=== PATIENT | male | born 1945 | race Caucasian/White ===

== ENCOUNTER 2017-01-10 07:25 | Inpatient (IN) | payer OTHER, BC ==
[2017-01-10] VITALS (7 sets, daily range): BP systolic 109–152; BP diastolic 72–95; PULSE 83–97; TEMP 36.3–36.7; O2SAT 95–96; Ht 172.7 cm; Wt 75.1 kg
[~2017-01-10] VITALS: Ht 172.7 cm; Wt 75.1 kg
[~2017-01-10 07:25] MED LIST: NIFE30TA83 PO
[2017-01-10] MEDS ORDERED: SODIUM CHLORIDE 0.9% 1000ML 1,000 ML IV SCH (07:34)
[2017-01-10 07:58] LABS: BASO % 0.2 %; BASO ABS # 0.02 K/uL (0-0.2); COMPLETE YES; EOS % 5.7 %; HEMATOCRIT 48.2 % (42-52); IG% 0.2 %; LYMPH % 26.7 %; LYMPH ABS # 2.17 K/uL (1.2-3.4); MEAN CELL VOLUME 90.8 fL (80-100); MEAN CORPUSCULAR HEMOGLOBIN 30.9 pg (25-34); MEAN PLATELET VOLUME 11.1 fL (7.4-10.4); MONO % 6.9 %; NEUT % 60.3 %; PLATELET COUNT 210 K/uL (130-400); RED BLOOD COUNT 5.31 M/uL (4.7-6.1); WHITE BLOOD COUNT 8.12 K/uL (4.8-10.8)
--- NOTE | 2017-01-10 07:59 | EMERGENCY ROOM VISIT NOTE ---
History Report prepared by Diallo: Gi Saab Under the Supervision of: Dr. Sarah Linn M.D. First contact with patient: 07:34 Chief Complaint: NEURO SYMPTOMS Stated Complaint: RIGHT ARM WON'T WORK,MANAGER HEALTH,LOOSE History of Present Illness The patient is a 71 year old male who presents to the Emergency Room with complaints of constant neurological symptoms beginning 1 hour ago. The patient' s states that the patient woke up this morning and took a shower. She reports that she heard him drop the soap several times in the shower and when he got out of the shower he told her that his arm was feeling weak and was not working properly. She notes that his right leg seems more wobbly and weak than usual. She denies any confusion, slurred speech, recent surgeries, history of diabetes, history of heart issues, stroke history, and taking blood thinners. The reports that the patient thinks that his symptoms did not start until after her woke up and got out of bed. She notes that his arm weakness seems to be slightly improved. Source of History: patient, spouse/significant other Onset: 1 hour ago Position: other (neurologic) Quality: other (weakness) Timing: constant Note: Pt has right arm weakness and right leg weakness. Denies any slurred speech and confusion. Review of Systems See HPI for pertinent positives & negatives. A total of 10 systems reviewed and were otherwise negative. Past Medical & Surgical Medical Problems: (1) Achalasia of esophagus (2) Basal cell carcinoma (3) Esophageal dilatation (4) TIA (transient ischemic attack) Surgical Problems: (1) H/O arthroscopic knee surgery (2) H/O rotator cuff surgery (3) History of cataract surgery Family History No pertinent family history stated. Social History Smoking Status: Never Smoker Marital Status: Housing Status: lives with significant other Occupation Status: retired Current/Historical Medications Scheduled Aspirin (Aspirin EC Low Dose), 81 MG PO DAILY Nifedipine Ext Rel (Procardia Xl Ext Rel), 30 MG PO QAM Allergies Coded Allergies: No Known Allergies (Unverified , 01/10/17) Physical Exam Vital Signs Date Time Temp Pulse Resp B/P Pulse Ox O2 Delivery O2 Flow Rate FiO2 01/10/17 08:30 94 16 150/90 01/10/17 07:39 36.5 100 16 171/117 95 Room Air 01/10/17 07:37 107 01/10/17 07:36 95 Room Air Physical Exam Vital signs reviewed. General: Well-appearing, in no significant distress. HEENT: No scleral icterus, PERRLA, neck supple. Atraumatic. Cardiovascular: Regular rate and rhythm, no extra sounds. Pulmonary: Clear to auscultation bilaterally, normal work of breathing. Abdomen: Soft, nontender, nondistended, positive bowel sounds. Musculoskeletal: Atraumatic, no peripheral edema. Neurologic: Patient awake alert and oriented x 3, full strength in all 4 extremities. Cranial nerves 2 through 12 grossly intact. No pronator drift, normal finger to nose, speech is clear. Skin: Warm, dry, no rash Medical Decision & Procedures ER Provider Diagnostic Interpretation: Radiology results as stated below per my review and radiologist interpretation: HEAD CT NONCONTRAST Findings: Mild mucosal thickening within the left frontal sinus and partial opacification of the ethmoid air cells. There appear to be small nasal polyps with the largest on the left measuring 2 cm. Mild mucosal thickening within the left maxillary sinus. The mastoid air cells are clear. The calvarium and skull base are intact. The ventricles and sulci are within normal limits. There is no mass, hematoma, midline shift, or acute infarct. Impression: No acute intracranial abnormality. A few nasal polyps measuring up to 2 cm. Electronically signed by: Aden Calzada M.D. 01/10/2017 8:13 AM Dictated Date/Time: 01/10/2017 8:08 AM CHEST ONE VIEW PORTABLE FINDINGS: The cardiac and mediastinal contours are normal. There is no evidence of focal pulmonary consolidation. There is no evidence of failure. No pleural effusions are visualized.[ IMPRESSION: No active disease in the chest. Electronically signed by: Tanner Domínguez M.D. 01/10/2017 9:06 AM Dictated Date/Time: 01/10/2017 9:06 AM Laboratory Results 01/10/17 07:40 Red Blood Count 5.31, Mean Corpuscular Volume 90.8, Mean Corpuscular Hemoglobin 30.9, Mean Corpuscular Hemoglobin Concent 34.0, Mean Platelet Volume 11.1, Neutrophils (%) (Auto) 60.3, Lymphocytes (%) (Auto) 26.7, Monocytes (%) (Auto) 6.9, Eosinophils (%) (Auto) 5.7, Basophils (%) (Auto) 0.2, Neutrophils # (Auto) 4.89, Lymphocytes # (Auto) 2.17, Monocytes # (Auto) 0.56, Eosinophils # (Auto) 0.46, Basophils # (Auto) 0.02 01/10/17 07:40 Test 01/10/17 07:34 01/10/17 07:40 01/10/17 07:44 White Blood Count 8.12 K/uL (4.8-10.8) Red Blood Count 5.31 M/uL (4.7-6.1) Hemoglobin 16.4 g/dL (14.0-18.0) Hematocrit 48.2 % (42-52) Mean Corpuscular Volume 90.8 fL (80-100) Mean Corpuscular Hemoglobin 30.9 pg (25-34) Mean Corpuscular Hemoglobin Concent 34.0 g/dl (32-36) Platelet Count 210 K/uL (130-400) Mean Platelet Volume 11.1 fL (7.4-10.4) Neutrophils (%) (Auto) 60.3 % Lymphocytes (%) (Auto) 26.7 % Monocytes (%) (Auto) 6.9 % Eosinophils (%) (Auto) 5.7 % Basophils (%) (Auto) 0.2 % Neutrophils # (Auto) 4.89 K/uL (1.4-6.5) Lymphocytes # (Auto) 2.17 K/uL (1.2-3.4) Monocytes # (Auto) 0.56 K/uL (0.11-0.59) Eosinophils # (Auto) 0.46 K/uL (0-0.5) Basophils # (Auto) 0.02 K/uL (0-0.2) RDW Standard Deviation 44.2 fL (36.4-46.3) RDW Coefficient of Variation 13.4 % (11.5-14.5) Immature Granulocyte % (Auto) 0.2 % Immature Granulocyte # (Auto) 0.02 K/uL (0.00-0.02) Prothrombin Time 10.7 SECONDS (9.0-12.0) Prothromb Time International Ratio 1.0 (0.9-1.1) Activated Partial Thromboplast Time 29.1 SECONDS (21.0-31.0) Partial Thromboplastin Ratio 1.1 Anion Gap 9.0 mmol/L (3-11) Est Creatinine Clear Calc Drug Dose 58.7 ml/min Estimated GFR () 77.3 Estimated GFR (Non- 66.7 BUN/Creatinine Ratio 10.5 (10-20) Estimated Average Glucose 103 mg/dl Hemoglobin A1c 5.2 % (4.5-5.6) Calcium Level 8.7 mg/dl (8.5-10.1) Total Creatine Kinase 59 U/L (39-308) Creatine Kinase MB 1.3 ng/ml (0.5-3.6) Creatine Kinase MB Ratio 2.2 (0-3.0) Troponin I < 0.015 ng/ml (0-0.045) Triglycerides Level 180 mg/dl (0-150) Cholesterol Level 223 mg/dl (0-200) HDL Cholesterol 47 mg/dl LDL Cholesterol, Calculated 140 mg/dl VLDL Cholesterol, Calculated 36 mg/dl Cholesterol/HDL Ratio 4.7 Bedside Prothrombin Time INR 1.1 (0.9-1.1) Bedside Glucose 108 mg/dl (70-99) Laboratory results per my review. Medications Administered Medications (Trade) Dose Ordered Sig/Hansel Route Start Time Stop Time Status Last Admin Dose Admin Sodium Chloride (Nss 1000ml) 1,000 ml @ 50 mls/hr Q20H IV 01/10/17 07:34 01/10/17 11:33 DC 01/10/17 08:08 50 MLS/HR ECG Indication: weakness Rate (beats per minute): 94 Rhythm: sinus rhythm Findings: 1st degree AV block, no acute ischemic change, no ectopy ED Course 0742: Past medical records reviewed. The patient was evaluated in room A3. A complete history and physical examination was performed. 0734: Sodium Chloride 1000 ml @ 50 mls/hr IV. 1011: I reviewed the patient's case with Dr. Vázquez of [facility]. Dr. Vázquez will evaluate the patient for further management. 1019: Upon reevaluation, the patient is resting comfortably. I discussed laboratory and radiographic results with the patient. He verbalized agreement of the treatment plan. [facility] The patient will be evaluated for further management and care. Medical Decision Differential diagnosis: Etiologies such as metabolic, infection, hypo/hyperglycemia, electrolyte abnormalities, cardiac sources, intracerebral event, toxicologic, neurologic, as well as others were entertained. Medication Reconciliation: I attest that I have personally reviewed the patient' s current medication list. This patient was evaluated and appeared to be in no significant distress. The patient's neurologic symptoms seem to have resolved by the time I evaluated the patient. His head CT was performed and is clear. Laboratory work is fairly unrevealing. EKG reveals a sinus rhythm with a first-degree AV block. I do suspect the patient has had a TIA. Given his age, it is in the patient's best interest to stay in the hospital for further management. Dr. Vázquez of the hospitalist service was consulted and will evaluate the patient. Patient is aware of the plan and agrees. Consults Time Called: 2004 Consulting Physician: Dr. Gurpreet Tijerina Returned Call: 1011 I reviewed the patient's case with Dr. Vázquez of [facility]. Dr. Vázquez will evaluate the patient for further management. Impression Primary Impression: TIA (transient ischemic attack) Scribe Attestation The scribe's documentation has been prepared under my direction and personally reviewed by me in its entirety. I confirm that the note above accurately reflects all work, treatment, procedures, and medical decision making performed by me. Departure Information Dispostion Being Evaluated By Hospitalist Prescriptions Aspirin (Aspirin EC Low Dose) 81 Mg Ectab 81 MG PO DAILY for 30 Days, #30 TABS take with full stomach over the counter Prov: Carole Flores M.D. 01/10/17 Referrals Valerio Marrero, D.OEsteban (PCP) Patient Instructions My [facility]
[2017-01-10 08:09] LABS: PARTIAL THROMBOPLASTIN RATIO 1.1; PROTHROMBIN TIME (PATIENT) 10.7 SECONDS (9.0-12.0)
--- NOTE | 2017-01-10 08:14 | DIAGNOSTIC IMAGING REPORT ---
HEAD CT NONCONTRAST CT DOSE: 638.56 mGycm HISTORY: Right arm weakness. Stroke TECHNIQUE: Multiaxial CT images of the head were performed without the use of intravenous contrast. Automated exposure control was utilized for this study. Comparison: None. Findings: Mild mucosal thickening within the left frontal sinus and partial opacification of the ethmoid air cells. There appear to be small nasal polyps with the largest on the left measuring 2 cm. Mild mucosal thickening within the left maxillary sinus. The mastoid air cells are clear. The calvarium and skull base are intact. The ventricles and sulci are within normal limits. There is no mass, hematoma, midline shift, or acute infarct. Impression: No acute intracranial abnormality. A few nasal polyps measuring up to 2 cm. Electronically signed by: Aden Calzada M.D. 01/10/2017 8:13 AM Dictated Date/Time: 01/10/2017 8:08 AM
[2017-01-10 08:19] LABS: BLOOD UREA NITROGEN 12 mg/dl (7-18); BUN/CREATININE RATIO 10.5 (10-20); CARBON DIOXIDE 26 mmol/L (21-32); CHLORIDE 107 mmol/L (98-107); GLUCOSE 105 mg/dl (70-99); POTASSIUM 3.7 mmol/L (3.5-5.1); SODIUM 142 mmol/L (136-145)
[2017-01-10 08:23] LABS: CKMB/CK RATIO 2.2 (0-3.0)
[2017-01-10 08:36] LABS: CALCIUM 8.7 mg/dl (8.5-10.1)
--- NOTE | 2017-01-10 09:07 | DIAGNOSTIC IMAGING REPORT ---
CHEST ONE VIEW PORTABLE CLINICAL HISTORY: Stroke COMPARISON STUDY: No previous studies for comparison. FINDINGS: The cardiac and mediastinal contours are normal. There is no evidence of focal pulmonary consolidation. There is no evidence of failure. No pleural effusions are visualized.[ IMPRESSION: No active disease in the chest. Electronically signed by: Tanner Domínguez M.D. 01/10/2017 9:06 AM Dictated Date/Time: 01/10/2017 9:06 AM
[2017-01-10] MEDS ORDERED: PHARMACIST DISCHARGE MED REC CONSULT PRN (11:30)
[2017-01-10] MEDS ORDERED: ONDANSETRON INJ 2 MG/ML 2 ML VIAL IV PRN (11:30)
[2017-01-10] MEDS ORDERED: ASPIRIN 325 MG ECTAB PO ONE (11:30)
[2017-01-10] MEDS ORDERED: ACETAMINOPHEN 325 MG TAB PO PRN (11:30)
--- NOTE | 2017-01-10 11:53 | History and Physical ---
History & Physical Date & Time of Service: January 10, 2017 at 11:42 Chief Complaint: Right Arm Weakness Primary Care Physician: Valerio Marrero D.O. History of Present Illness 71 year old male who presents to the ER with right arm weakness. He reports his symptoms were present when he woke up this morning. He reports it was very difficult to move his right arm. He denies numbness or tingling. Describes it as if his arm "fell asleep". While showering, he reports dropping the soap multiple times. After a few hours, symptoms started to resolve.He reports 90% improvement currently. He denies any other unilateral weakness, numbness, or tingling. No headache or blurred vision. denies any facial droop or slurred speech. He denies chest pain and shortness of breath. No lightheadedness , dizziness, diaphoresis, or syncopal events. He denies abdominal pain, nausea, vomiting, and diarrhea. No fever or chills. He denies urinary symptoms. In the ER, head CT is negative for acute findings. Labs are unremarkable. BP was initially elevated however is improving on its own. Past Medical/Surgical History Medical Problems: (1) Achalasia of esophagus Status: Chronic (2) Basal cell carcinoma Status: Chronic (3) Esophageal dilatation Status: Chronic Surgical Problems: (1) H/O arthroscopic knee surgery Status: Chronic (2) H/O rotator cuff surgery Status: Chronic (3) History of cataract surgery Status: Chronic Family History Dissection of thoracic aorta MOTHER ( at age 62) FH: non-Hodgkin's lymphoma FATHER Social History Smoking Status: Never Smoker Alcohol Use: occasionally Marital Status: Immunizations History of Influenza Vaccine: Yes Influenza Vaccine Date: May 25, 2016 History of Tetanus Vaccine?: Yes Tetanus Immunization Date: Aug 19, 2013 History of Pneumococcal: Yes (08/13/15) Allergies Coded Allergies: No Known Allergies (Unverified , 01/10/17) Home Medications Scheduled Aspirin (Aspirin EC Low Dose), 81 MG PO DAILY Nifedipine Ext Rel (Procardia Xl Ext Rel), 30 MG PO QAM Review of Systems ROS per HPI, all other systems reviewed and negative Physical Exam Vital Signs Date Time Temp Pulse Resp B/P Pulse Ox O2 Delivery O2 Flow Rate FiO2 01/10/17 11:27 36.6 87 15 152/95 96 Room Air 01/10/17 10:29 105 16 130/92 96 Room Air 01/10/17 08:30 94 16 150/90 01/10/17 07:39 36.5 100 16 171/117 95 Room Air 01/10/17 07:37 107 01/10/17 07:36 95 Room Air General Appearance: no apparent distress Head: normocephalic Eyes: normal inspection, PERRL ENT: hearing grossly normal Neck: supple, no JVD Respiratory/Chest: lungs clear, normal breath sounds, no respiratory distress Cardiovascular: regular rate, rhythm, no edema, normal peripheral pulses Abdomen/GI: normal bowel sounds, non tender, soft Extremities/Musculoskelatal: normal inspection, no calf tenderness Neurologic/Psych: no motor/sensory deficits, alert, normal mood/affect, oriented x 3 Skin: normal color, warm/dry Diagnostics Laboratory Results Results Past 24 Hours Test 01/10/17 07:34 01/10/17 07:40 01/10/17 07:44 01/10/17 11:25 Range/Units White Blood Count 8.12 4.8-10.8 K/uL Red Blood Count 5.31 4.7-6.1 M/uL Hemoglobin 16.4 14.0-18.0 g/dL Hematocrit 48.2 42-52 % Mean Corpuscular Volume 90.8 80-100 fL Mean Corpuscular Hemoglobin 30.9 25-34 pg Mean Corpuscular Hemoglobin Concent 34.0 32-36 g/dl Platelet Count 210 130-400 K/uL Mean Platelet Volume 11.1 7.4-10.4 fL Neutrophils (%) (Auto) 60.3 % Lymphocytes (%) (Auto) 26.7 % Monocytes (%) (Auto) 6.9 % Eosinophils (%) (Auto) 5.7 % Basophils (%) (Auto) 0.2 % Neutrophils # (Auto) 4.89 1.4-6.5 K/uL Lymphocytes # (Auto) 2.17 1.2-3.4 K/uL Monocytes # (Auto) 0.56 0.11-0.59 K/uL Eosinophils # (Auto) 0.46 0-0.5 K/uL Basophils # (Auto) 0.02 0-0.2 K/uL RDW Standard Deviation 44.2 36.4-46.3 fL RDW Coefficient of Variation 13.4 11.5-14.5 % Immature Granulocyte % (Auto) 0.2 % Immature Granulocyte # (Auto) 0.02 0.00-0.02 K/uL Prothrombin Time 10.7 9.0-12.0 SECONDS Prothromb Time International Ratio 1.0 0.9-1.1 Activated Partial Thromboplast Time 29.1 21.0-31.0 SECONDS Partial Thromboplastin Ratio 1.1 Sodium Level 142 136-145 mmol/L Potassium Level 3.7 3.5-5.1 mmol/L Chloride Level 107 98-107 mmol/L Carbon Dioxide Level 26 21-32 mmol/L Anion Gap 9.0 3-11 mmol/L Blood Urea Nitrogen 12 7-18 mg/dl Creatinine 1.10 0.60-1.40 mg/dl Est Creatinine Clear Calc Drug Dose 58.7 ml/min Estimated GFR () 77.3 Estimated GFR (Non- 66.7 BUN/Creatinine Ratio 10.5 10-20 Random Glucose 105 70-99 mg/dl Calcium Level 8.7 8.5-10.1 mg/dl Total Creatine Kinase 59 39-308 U/L Creatine Kinase MB 1.3 0.5-3.6 ng/ml Creatine Kinase MB Ratio 2.2 0-3.0 Troponin I < 0.015 0-0.045 ng/ml Bedside Prothrombin Time INR 1.1 0.9-1.1 Bedside Glucose 108 70-99 mg/dl Diagnostic Radiology Head CT Impression: No acute intracranial abnormality. A few nasal polyps measuring up to 2 cm. CXR IMPRESSION: No active disease in the chest. Impression Assessment and Plan RIGHT ARM WEAKNESS RULE OUT TIA / CVA - admit to tele - patient presenting with right arm weakness that was present when he woke up this morning; symptoms lasted for about 3 hours then started to resolve, patient currently reports 90% improvement - no risk factors for CVA identified - head CT negative - brain MRI/ MRA, neck MRA, echo - ASA 324mg now, followed by 81mg daily - neuro checks - check lipid panel and hgb a1c ACHALASIA OF ESOPHAGUS - continue nifedipine DVT PROPHYLAXIS - SCDs until acute CVA ruled out DISPO - In my clinical judgment this beneficiary meets acute admission criteria, established by [facility], that includes being hospitalized through two midnights. ATTENDING ADDENDUM : records reviewed , pt interviewed and examined care coordinated with Valery REYES please see her documentation for detail patient history Briefly this a healthy /active 71 yo male with no significant past medical or family hx of CAD or stroke presented to ED with complain of weakness/numbness of rt arm lasting for approx 3 -4 hrs pt woke up approx 6: 30 am felt his rt arm was numb and weak, has having problem with fine motor skill , while taking shower dropped soap for few times, had hard time putting on clothes , tieing show laces had no other symptom of facial droop , slurred speech , confusion no chest pain or palpitation can to ED approx 7: 40 am , still had persisted numbness of rt arm approx by 10 am his symptom gradually resolves during my interview he feels 99 % better has a firm blade aligner on rt hand , still has minimum numbness on rt hand and arm P/E; GEN; no sign of distress, comfortable , conversing appropriately HEENT; sclera non icteric HT; regular S1/S2 LUNGS: CTA ABDOMEN : soft, non tender EXTREMITIES : no rash or deformity NEURO: no focal neurological deficit , mild slow in fine motor movement of right fingers , normal strength, no weakness or paresthesia on lower ext A/P: TRANSIENT RT ARM WEAKNESS /TIA : symptom of numbness /weakness lasted for approx 4 hrs improved now no arrhythmia noted in EKG CT head -no acute finding stroke work up ordered -MRI/MRA of brain , ECHO , carotid Doppler observe in tele for 24 hrs to R/o paroxysmal arrhythmia no prior hx of CVA or DE non smoker very active at baseline -does hiking with seniors every week , bikes no complain of chest pain or SOB with strenuous activity Lab work ordered to assess for risk factors : fasting lipids, Hb A1c started on Aspirin 81 mg daily pt is counselled to continue to take low dose aspirin for preventive measure FULL CODE please refer to Valery REYES documentation for discussion of other issues Carole Flores MD Level of Care Telemetry VTE Prophylaxis VTE Risk Assessment Done? Y/N: Yes Risk Level: Moderate Given or contraindicated: Jossy Stockings, SCD's Additional Copies To Valerio Marrero, D.O.
[2017-01-10] MEDS ORDERED: ASPEC81 PO ×2 (12:05→12:46)
--- NOTE | 2017-01-10 12:07 | Discharge Instructions ---
Discharge Instructions Date of Service January 10, 2017. Admission Reason for Admission: Right Arm Weakness Discharge Discharge Diagnosis / Problem: ACUTE STROKE Discharge Goals Goal(s): Improve function, Learn about illness, Diagnostic testing, Prevent Disease Progression Activity Recommendations Activity Limitations: resume your previous activity . Instructions / Follow-Up Instructions / Follow-Up HOSPITAL FOLLOW UP ON 01/19/2017 @ 1:[address] Valerio Marrero, DO [facility] NEED TO FOLLOW UP WITH NEUROLOGY DR NAVARRO AT [facility] IN 2-3 WEEKS , PLEASE CALL OFFICE TO SCHEDULE AN APPOINTMENT ASPIRIN AND PLAVIX NEEDS TO BE CONTINUED FOR 3 MONTHS AT LEAST , THEN CAN BE REDUCED TO ASPIRIN ONLY NEED TO HAVE NEUROLOGY EVALUATION PRIOR TO DISCONTINUING PLAVIX TAKE BOTH ASPIRIN AND PLAVIX WITH FOOD -INCREASED RISK OF STOMACH ULCER / BLEEDING IF TAKEN IN EMPTY STOMACH PLEASE NOTIFY YOUR PHYSICIAN IF YOU NOTICE DARK STOOL -SIGN OF BLEEDING IN STOMACH YOU ARE STARTED ON A NEW MEDICATION TO LOWER YOUR CHOLESTEROL LIPITOR 20 MG DAILY NEED TO REPEAT FASTING LIPID PANEL IN 3 MONTHS TO ASSES ADEQUATE GOAL OF LDL IS OBTAINED ( GOAL < 70 ) YOU WILL NEED DIESEL ENGINE SPECIALIST -CARDIONET /ZIO PATCH TO ASSESS FOR ANY CARDIAC ARRHYTHMIA CAUSING YOUR HAVE THE STROKE Risk Factors for Stroke: You can reduce your chances of stroke by working with your medical provider to adopt a healthy lifestyle. Some specific ways to lower your chance of stroke are: * If you are a smoker, now is the time to stop smoking cigarettes * If you are diabetic, improve the control of your blood sugars * Avoid excessive amounts of alcohol * Control high blood pressure * Lose weight if you are overweight * Be sure to lead an active lifestyle * Eat a healthy diet low in salt, cholesterol and fat You should know about other risk factors for stroke that you are unable to control. These include: * Age 55 years or older * Male gender * Certain racial groups: , or / * Family History of Stroke, Mini stroke or Heart Attack * Sickle Cell Disease Follow Up: It is important for you to keep your follow up appointments with your medical provider. Current Hospital Diet Patient's current hospital diet: AHA Diet (Heart Healthy) Discharge Diet Recommended Diet: AHA Diet (Heart Healthy) Pending Studies Studies pending at discharge: no Laboratory Results Hemoglobin A1c Test 01/10/17 07:40 Range/Units Lipid Panel Test 01/10/17 11:25 Range/Units Medical Emergencies . Who to Call and When: Medical Emergencies: Call 911 immediately if you experience any of the following warning signs and symptoms of Stroke: * Sudden numbness or weakness of the face, arm or leg, especially on one side of the body * Sudden confusion, trouble speaking or understanding * Sudden trouble seeing in one or both eyes * Sudden trouble walking, dizziness, loss of balance or coordination * Sudden severe headache with no cause Do not delay calling 911 if you experience any warning signs or symptoms of a stroke. Delay in seeking medical attention may affect what treatments can be given to you. . Non-Emergent Contact Non-Emergency issues call your: Primary Care Provider . . "Provider Documentation" section prepared by Carole Flores. . Stroke Core Measures Reason no t-PA for Stroke: Treatment not indicated Reason no antithrom by day 2: Treatment provided - N/A Reason no antithrom at D/C: Treatment provided - N/A Reason no statin at D/C: Treatment not indicated Reason no anticoag w/a fib: Treatment not indicated VTE Core Measure Inpt VTE Proph given/why not?: Jossy Coyne SCD's [place] Drug Monitoring Program Search Results: no issues identified
[2017-01-10 12:37] LABS: CHOLESTEROL/HDL RATIO 4.7
[2017-01-10 12:56] LABS: ESTIMATED AVERAGE GLUCOSE 103 mg/dl; HA1C FLAG Normal (Normal)
--- NOTE | 2017-01-10 15:54 | DIAGNOSTIC IMAGING REPORT ---
ULTRASOUND OF THE CAROTID ARTERIES CLINICAL HISTORY: Transient ischemic attack. COMPARISON STUDY: None. TECHNIQUE: Real-time, grayscale, and color Doppler sonography of the carotid arteries was performed. Imaging reviewed in the transverse and longitudinal planes. NASCET criteria was utilized for stenosis calcification. FINDINGS: There is minimal atherosclerotic plaque present . The peak systolic velocity within the right internal carotid artery is 60 cm/sec. The systolic velocity ratio of right internal to common carotid artery is 0.9. The peak systolic velocity within the left internal carotid artery is 48 cm/sec. The systolic velocity ratio left internal to common carotid artery is 0.7. Antegrade flow is seen in the vertebral arteries. The external carotid arteries are patent. IMPRESSION: No evidence of hemodynamically significant carotid stenosis. Electronically signed by: Tanner Domínguez M.D. 01/10/2017 3:53 PM Dictated Date/Time: 01/10/2017 3:52 PM
[2017-01-10 19:01] LABS: URINE APPEARANCE CLEAR (CLEAR); URINE BILIRUBIN NEG (NEG); URINE COLOR YELLOW; URINE NITRITE NEG (NEG); URINE PH 5.5 (4.5-7.5); URINE SPECIFIC GRAVITY 1.019 (1.000-1.030); UROBILINOGEN NEG (NEG); ZZUR CULT IF INDIC CLEAN CATCH NO
[2017-01-10 19:04] LABS: MANUAL MICROSCOPIC REQUIRED? NO; REVIEW REQ? NO
--- NOTE | 2017-01-10 22:38 | DIAGNOSTIC IMAGING REPORT ---
MR ANGIOGRAM OF THE BRAIN CLINICAL HISTORY: Strokelike symptoms. COMPARISON STUDY: CT of the brain dated 01/10/2017.. TECHNIQUE: 3-D [id number] MR angiography of the intracranial circulation is performed. 3-D tumble views are created and assessed. IV contrast was not administered for this examination. FINDINGS: There is origin of the right posterior cerebral artery. The right A1 segment is somewhat diminutive. The internal carotid arteries are widely patent bilaterally, as are the anterior and middle cerebral arteries. The vertebrobasilar system and posterior cerebral arteries are widely patent. The left vertebral artery is dominant. There is no aneurysm, high-grade stenosis, or focal vessel cutoff seen throughout the intracranial circulation. The brain parenchyma is normal as visualized. IMPRESSION: Unremarkable MR angiogram of the brain. Electronically signed by: Blair Almeida M.D. 01/10/2017 10:37 PM Dictated Date/Time: 01/10/2017 10:34 PM
[2017-01-10] MEDS ORDERED: GADAVIST IV PRN (23:30)
--- NOTE | 2017-01-11 01:59 | Progress Note ---
Internal Med Progress Note Date of Service: January 11, 2017. Provider Documentation: Made aware by RN of initial MRI brain results : restricted diffusion, L parietal and cortex. not taking ASA at home prior to confinement as per px. AP Acute CVA full dose ASA, statin for secondary stroke prevention FLP, Neuro consult RE CVA\ Will relay to AM provider. Vital Signs: Date Time Temp Pulse Resp B/P Pulse Ox O2 Delivery O2 Flow Rate FiO2 01/11/17 08:15 Room Air 01/11/17 07:18 36.8 90 18 134/86 94 Room Air 01/11/17 04:12 36.6 68 18 113/57 97 Room Air 01/11/17 04:00 Room Air 01/11/17 00:00 Room Air 01/10/17 23:34 36.5 85 18 126/82 95 Room Air 01/10/17 20:00 96 Room Air 01/10/17 19:30 36.3 87 20 152/83 96 Room Air 01/10/17 16:00 96 Room Air 01/10/17 15:56 36.7 83 16 144/87 96 Room Air 01/10/17 13:08 97 109/72 01/10/17 12:26 Room Air 01/10/17 11:27 36.6 87 15 152/95 96 Room Air Lab Results: Results Past 24 Hours Test 01/10/17 18:40 01/11/17 05:38 Range/Units Urine Color YELLOW Urine Appearance CLEAR CLEAR Urine pH 5.5 4.5-7.5 Urine Specific Moody 1.019 1.000-1.030 Urine Protein NEG NEG Urine Glucose (UA) NEG NEG Urine Ketones NEG NEG Urine Occult Blood NEG NEG Urine Nitrite NEG NEG Urine Bilirubin NEG NEG Urine Urobilinogen NEG NEG Urine Leukocyte Esterase NEG NEG Triglycerides Level 106 0-150 mg/dl Cholesterol Level 182 0-200 mg/dl HDL Cholesterol 41 mg/dl LDL Cholesterol, Calculated 120 mg/dl VLDL Cholesterol, Calculated 21 mg/dl Cholesterol/HDL Ratio 4.4
[2017-01-11] MEDS ORDERED: PHARMACIST DISCHARGE MED REC CONSULT PRN (02:00)
[2017-01-11 04:12] VITALS: BP 113/57; PULSE 68; TEMP 36.6; O2SAT 97
[2017-01-11 06:21] LABS: CHOLESTEROL/HDL RATIO 4.4
[2017-01-11 07:18] VITALS: BP 134/86; PULSE 90; TEMP 36.8; O2SAT 94
--- NOTE | 2017-01-11 08:06 | DIAGNOSTIC IMAGING REPORT ---
MRI OF THE BRAIN WITHOUT AND WITH IV CONTRAST SEIZURE PROTOCOL CLINICAL HISTORY: Stroke. COMPARISON STUDY: Head CT January 10, 2017. TECHNIQUE: Utilizing a 1.5 Miya magnet and dedicated coil, multiplanar, multiecho imaging of the brain was performed pre and postcontrast administration. IV administration of 7 mL of Gadavist contrast was uneventful. Thin cut coronal T2 imaging was performed according to seizure protocol. FINDINGS: There are multiple small foci of restricted diffusion within the left frontal and parietal lobes which measure up to 8 mm. These reflect foci of acute infarction. There is no mass effect or evidence of hemorrhagic conversion. Ventricular system is normal. Basilar cisterns are patent. There are no extra-axial collections. No intracranial masses or pathologic enhancement is present. There is moderate polypoid mucosal thickening within the sinuses and the nasopharynx. Calvarial signal is maintained. Additional white matter T2 hyperintense foci reflect small vessel disease. IMPRESSION: 1. Multiple small foci of acute infarction within the left frontal and parietal lobes. No mass effect or evidence of hemorrhagic conversion. 2. No intracranial masses or pathologic enhancement. Electronically signed by: Hi Roth M.D. 01/11/2017 8:05 AM Dictated Date/Time: 01/11/2017 8:01 AM
--- NOTE | 2017-01-11 08:14 | DIAGNOSTIC IMAGING REPORT ---
MRA OF THE NECK WITH AND WITHOUT CONTRAST CLINICAL HISTORY: Stroke. COMPARISON STUDY: Carotid ultrasound January 10, 2017. TECHNIQUE: Unenhanced and contrast-enhanced MRA of the neck was performed. Injection of 7 mL of Gadavist IV was uneventful. NASCET criteria were utilized to estimate the degree of carotid stenosis. FINDINGS: There is no significant stenosis within the bilateral internal carotid, common carotid or vertebral arteries. There is irregularity of the proximal right internal carotid artery due to atherosclerosis. Note is made of a apparent 4 mm outpouching of the proximal right internal carotid artery which is located 1.6 cm distal to the bifurcation. This is of doubtful significance. This study is mildly compromised by motion artifact. IMPRESSION: 1. No hemodynamically significant stenosis within the major vessels of the neck. 2. Atherosclerotic irregularity of the proximal right internal carotid artery. Apparent 4 mm outpouching of the proximal right internal carotid artery, a finding of questionable significance. Electronically signed by: Hi Roth M.D. 01/11/2017 8:13 AM Dictated Date/Time: 01/11/2017 8:06 AM
--- NOTE | 2017-01-11 08:45 | Clinical Documentation Query ---
CLINICAL DOCUMENTATION QUERY 71 year old male who presents to the Emergency Room with complaints right arm weakness. 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 ( ) Other explanation of clinical findings (Please Explain) ( ) Unable to determine (Please Define) ( ) Need to Discuss ( ) Not Agree The medical record reflects the following clinical findings, treatment, and risk factors. Clinical Indicators: As above. MRI showed multiple small foci of acute infarction within the left frontal and parietal lobes Treatment: ASA, Neuro consult Risk Factors: Age, Please clarify and document your clinical opinion in the progress notes and discharge summary. Terms such as "probable", "suspected", "likely", "questionable", "possible", or "still to be ruled out" are acceptable. IF IN AGREEMENT, YOU MUST DOCUMENT ABOVE DIAGNOSTIC STATEMENT IN DAILY PROGRESS NOTES AND DISCHARGE SUMMARY. This document is not part of the patient's record. Thank You, Roly King, ANIYAH [phone]
[2017-01-11] MEDS ORDERED: ASPIRIN 325 MG ECTAB PO SCH (09:00)
[2017-01-11] MEDS ORDERED: ATORVASTATIN 20 MG TAB PO SCH (09:00)
[2017-01-11] MEDS ORDERED: ASPIRIN 81 MG ECTAB PO SCH (09:00)
[2017-01-11] MEDS ORDERED: NIFEdipine 30 MG CR TAB PO SCH (10:30)
[2017-01-11] MEDS ORDERED: CLOPIDOGREL BISULFATE 75 MG TAB PO ONE (10:30)
--- NOTE | 2017-01-11 12:12 | ECHOCARDIOGRAM REPORT ---
*NOTICE TO RECEIVING LIBERTARIAN AGENCY This information is strictly Confidential and protected under [place] law. [place] law prohibits you from making any further disclosure of this information unless further disclosure is expressly permitted by the written consent of the person to whom it pertains or is authorized by law. A general authorization for the release of medical or other information is not sufficient for this purpose. Hospital accepts no responsibility if the information is made available to any other person, INCLUDING THE PATIENT. Interpretation Summary * Name: RYLAN AGUILLON Study Date: 01/11/2017 10:28 AM BP: 152/95 mmHg * Patient Location: [facility]\S\N283\S\2 HR: 87 * : 1945 (M/d/yyyy) Gender: Male Height: 67 in * Age: 71 yrs Ethnicity: [place] Weight: 169 lb * Ordering Physician: Valery Banerjee * Performed By: Argentina Reyes * * Reason For Study: TIA/ CVA * BSA: 1.9 m2 * No cardiac source of emboli noted. * Grossly normal valvular structure and function. * -- Conclusions -- * No cardiac source of emboli noted. * The left ventricle is normal in size. * Left ventricular systolic function is normal. * Ejection Fraction = 55-60%. * Grossly normal valvular structure and function. Procedure Details * A complete two-dimensional transthoracic echocardiogram was performed (2D, M-mode, Doppler and color flow Doppler). * A saline contrast injection was performed to assess for cardiac shunting. * The injection was performed through an intravenous line in the left arm. * The attending nurse who injected the saline contrast was GLORY ANN RN. * A total of 30 cc of agitated saline was given. Left Ventricle * The left ventricle is normal in size. * There is normal left ventricular wall thickness. * Ejection Fraction = 55-60%. * Left ventricular systolic function is normal. * The left ventricular wall motion is normal. Right Ventricle * The right ventricle is normal size. * The right ventricular systolic function is normal. Atria * The left atrium is small. * Right atrial size is normal. * Injection of contrast documented no interatrial shunt. * The interatrial septum is intact with no evidence for an atrial septal defect. Mitral Valve * The mitral valve anatomy is normal. * Significant mitral regurgitation is absent. Tricuspid Valve * The tricuspid valve anatomy is normal. * Significant tricuspid regurgitation is absent. Aortic Valve * The aortic valve is tricuspid. The leaflet thickness if normal. There is no aortic stenosis, and no significant insufficiency. * No hemodynamically significant valvular aortic stenosis. * There is no significant aortic regurgitation. Pulmonic Valve * The pulmonic valve is not well visualized. Great Vessels * The aortic root and proximal ascending aorta are normal sized. Pericardium/Pleural * There is no pericardial effusion. MMode 2D Measurements and Calculations IVSd 1.1 cm IVSs 1.3 cm LVIDd 4.7 cm LVIDs 3.3 cm LVPWd 0.97 cm LVPWs 1.6 cm IVS/LVPW 1.2 FS 30.3 % EDV(Teich) 102.3 ml ESV(Teich) 43.3 ml EF(Teich) 57.6 % EDV(cubed) 103.7 ml ESV(cubed) 35.1 ml EF(cubed) 66.1 % % IVS thick 17.1 % % LVPW thick 68.3 % LV mass(C)d 175.4 grams LV mass(C)dI 93.2 grams/m\S\2 LV mass(C)s 172.4 grams LV mass(C)sI 91.6 grams/m\S\2 SV(Teich) 58.9 ml SI(Teich) 31.3 ml/m\S\2 SV(cubed) 68.6 ml SI(cubed) 36.4 ml/m\S\2 ACS 1.4 cm LA dimension 4.0 cm LVOT diam 2.2 cm LVOT area 3.8 cm\S\2 LVAd ap4 30.6 cm\S\2 LVLd ap4 7.8 cm EDV(MOD-sp4) 95.0 ml EDV(sp4-el) 101.1 ml LVAs ap4 17.8 cm\S\2 LVLs ap4 6.7 cm ESV(MOD-sp4) 39.6 ml ESV(sp4-el) 40.3 ml EF(MOD-sp4) 58.3 % EF(sp4-el) 60.2 % LVAd ap2 27.9 cm\S\2 LVLd ap2 7.8 cm EDV(MOD-sp2) 81.1 ml EDV(sp2-el) 85.1 ml LVAs ap2 15.6 cm\S\2 LVLs ap2 6.1 cm ESV(MOD-sp2) 34.8 ml ESV(sp2-el) 34.3 ml EF(MOD-sp2) 57.1 % EF(sp2-el) 59.8 % LVLd %diff -1.07 % EDV(MOD-bp) 89.0 ml LVLs %diff -10.72 % ESV(MOD-bp) 39.1 ml EF(MOD-bp) 56.0 % SV(MOD-sp4) 55.4 ml SI(MOD-sp4) 29.4 ml/m\S\2 SV(MOD-sp2) 46.3 ml SI(MOD-sp2) 24.6 ml/m\S\2 SV(MOD-bp) 49.9 ml SI(MOD-bp) 26.5 ml/m\S\2 SV(sp4-el) 60.9 ml SI(sp4-el) 32.3 ml/m\S\2 SV(sp2-el) 50.9 ml SI(sp2-el) 27.0 ml/m\S\2 Doppler Measurements and Calculations MV E max corrie 34.3 cm/sec MV A max corrie 72.1 cm/sec MV E/A 0.48 MV P1/2t max corrie 43.1 cm/sec MV P1/2t 64.0 msec MVA(P1/2t) 3.4 cm\S\2 MV dec slope 197.5 cm/sec\S\2 MV dec time 0.48 sec Ao V2 max 95.4 cm/sec Ao max PG 3.6 mmHg Ao max PG (full) 1.7 mmHg JASPER(V,A) 2.8 cm\S\2 JASPER(V,D) 2.8 cm\S\2 LV V1 max PG 1.9 mmHg LV V1 max 69.5 cm/sec PA V2 max 58.1 cm/sec PA max PG 1.4 mmHg PI end-d corrie 110.7 cm/sec
[2017-01-11] MEDS ORDERED: PLV75 PO (12:29)
[2017-01-11] MEDS ORDERED: LPT20 PO (12:29)
[2017-01-11 13:08] VITALS: BP 134/86; PULSE 90; TEMP 36.8; O2SAT 94
--- NOTE | 2017-01-11 13:14 | Progress Note ---
Internal Med Progress Note Date of Service: January 11, 2017. Provider Documentation: SUBJECTIVE: feels the same , no complain of weakness or paresthesia rt arm has normal motor function , sensation and strength no complain of SOB , chest discomfort or palpitation no arrhythmia noted on tele OBJECTIVE: Vital Signs-as noted below Exam: General-no sign of distress Eyes-sclera non icteric ENT-NAd Neck-no JVD, no carotid bruit Lungs-CTA ,no wheeze or rales Heart-regular S1/S2 Abdomen-soft, non tender Extremities-no lower ext edema Neuro-AAO x3 ,no focal neurological deficit noted Lab data as noted below. ASSESSMENT & PLAN: ACUTE CVA /POSSIBLE EMBOLIC STROKE presented with symptom of numbness /weakness lasted for approx 4 hrs resolved now no arrhythmia noted in EKG CT head -no acute finding MRI OF BRAIN : 1. Multiple small foci of acute infarction within the left frontal and parietal lobes. No mass effect or evidence of hemorrhagic conversion. 2. No intracranial masses or pathologic enhancement. -concern for Embolic phenomenon -Carotid Doppler . MRA of neck no stenosis noted _ECHO -no cardiac thrombus noted -no arrhythmia noted in Tele -Finding of MRI of brain D/w Pt , in detail -pt will be started on Aspirin 81 mg, addition of Plavix 75 mg daily ( asked to take with full stomach ) will need Dual antiplatelet therapy for at least 3 months then possible reduce to Aspirin daily if no further episode of TIA /CVA will be seen by Neurology in 4-6 weeks while on dual antiplatelet therapy -Fasting lipid profile shows LDL 120 given Acute CVA goal LDL < 70 to prevent future CVA /WI pt started on Statin -repeat Fasting lipid panel in 3-4 months pt is asked to continue with healthy life style with activity /exercise /and low fat /low cholesterol diet _Will need CardioNet /Zio patch monitoring to assess for arrhythmia/paroxysmal Afib - family physician will be updated DVT PROPHYLAXIS low risk scd and teds ambulate DISPOSITION stable to be discharged home today Medicine follow up with Dr Valerio Marrero Neurology follow up with Dr Ku Vital Signs: Lab Results:
--- NOTE | 2017-01-11 14:37 | Pharmacy Progress Note ---
Pharmacist Stroke Counseling Date of Service January 11, 2017. Scope Pharmacy has been consulted to provide medication discharge counseling for this patient admitted with ischemic stroke/hemorrhagic stroke/ transient ischemic attack as per the Pharmacist Discharge Counseling for Stroke Patients Protocol. Medications on Discharge New Medications: Aspirin (Aspirin EC Low Dose) 81 Mg Ectab 81 MG PO DAILY for 30 Days, #30 TABS take with full stomach over the counter Atorvastatin (Atorvastatin Calcium) 20 Mg Tab 20 MG PO QAM for 30 Days, #30 TAB 2 Refills Clopidogrel Bisulfate (Clopidogrel) 75 Mg Tab 75 MG PO QAM for 30 Days, #30 TAB 2 Refills Continued Medications: Nifedipine Ext Rel (Procardia Xl Ext Rel) 30 Mg Tabcr 30 MG PO QAM, TAB Action The above medications, specifically ones for stroke treatment/prophylaxis, have been reviewed in detail with the patient and/or patient nutrition representative(s) prior to discharge. This includes indication, common adverse reactions, drug interactions, and medication administration. Medication counseling has been employed using the teach-back method to ensure understanding. Outcome The patient has demonstrated understanding of the medications. Please note, they are aware that the pharmacist will call them within 72 hours post-discharge to confirm that the appropriate medications are being taken and answer any further medication related questions the patient might have at that time. Contact information Individual to be contacted: Vivek Morrison Relationship to patient (if applicable): patient Phone number: [phone] Best time to call: anytime Additional comments: Pt reports he will see his PCP or neurologist early next week. Thank you for allowing pharmacy to be involved in the care of this patient. Please call [phone] or [phone] with any additional questions
--- NOTE | 2017-01-11 15:56 | NEUROLOGY CONSULTATION ---
DATE OF CONSULTATION: 01/11/2017 DATE OF CONSULTATION: 01/11/2017. REQUESTED BY: Dr. Flores. HISTORY OF PRESENT ILLNESS: Vivek is 71 years old, is known to Dr. Valerio Marrero and has been in excellent health with the exception of achalasia of the esophagus, basal cell carcinomas and has had esophageal dilatation, arthroscopic knee surgery, rotator cuff surgery and cataract procedures. Otherwise, he identifies no medical problems. He presented to the ER yesterday with the right arm weakness upon awakening and this cleared up actually significantly over the course of the day and by the time he reached the ER was 90% improved. Apparently, this morning it was also essentially back to normal. He had a workup which was appropriate for the possibility of a TIA/CVA and this revealed multiple small embolic or presumptive embolic infarctions in the left frontal lobes with normal carotid duplexes, MRAs and echocardiographic studies. He has been placed appropriately on aspirin and Plavix in the standard doses and is going to be scheduled for an outpatient Zio patch or CardioNet monitoring looking for paroxysmal atrial fibrillation. I actually never saw Mr. Morrison. Dr. Flores called me by telephone. He apparently had a pressing engagement in [place] and requested to be discharged on the aspirin and Plavix and the above plan for followup. He will be assessed by his primary care physician and neurology would be most happy to take a look at him in 3-4 weeks just to be sure he has had no recurrent events and that the results of the CardioNet or Zio patch are completed. If indeed no paroxysmal atrial fibrillation is found then he will be classified as a cryptogenic stroke, be treated with dual antiplatelet therapy for 3 months and then one of the 2 agents will be stopped. BASILIO
--- NOTE | 2017-01-11 20:45 | Discharge Summary ---
Discharge Summary Date of Service January 11, 2017. Discharge Summary Admission Date: January 10, 2017 at 10:24 Discharge Date: January 11, 2017 Discharge Disposition: Home Principal Diagnosis: ACUTE STROKE Procedures: MRI OF BRAIN : IMPRESSION: 1. Multiple small foci of acute infarction within the left frontal and parietal lobes. No mass effect or evidence of hemorrhagic conversion. 2. No intracranial masses or pathologic enhancement. ECHO : No cardiac source of emboli noted. Grossly normal valvular structure and function. Medication Reconciliation New Medications: Aspirin (Aspirin EC Low Dose) 81 Mg Ectab 81 MG PO DAILY for 30 Days, #30 TABS take with full stomach over the counter Atorvastatin (Atorvastatin Calcium) 20 Mg Tab 20 MG PO QAM for 30 Days, #30 TAB 2 Refills Clopidogrel Bisulfate (Clopidogrel) 75 Mg Tab 75 MG PO QAM for 30 Days, #30 TAB 2 Refills Continued Medications: Nifedipine Ext Rel (Procardia Xl Ext Rel) 30 Mg Tabcr 30 MG PO QAM, TAB Referrals At Discharge Follow up Referrals: Neurologist Referral - Please Call For Appointment with Vivek Navarro M.D. ( MEDICINE) Physician Referral - 01/19/17 with Valerio Marrero D.[place] Admission Information HPI (per Admitting provider): 71 year old male who presents to the ER with right arm weakness. He reports his symptoms were present when he woke up this morning. He reports it was very difficult to move his right arm. He denies numbness or tingling. Describes it as if his arm "fell asleep". While showering, he reports dropping the soap multiple times. After a few hours, symptoms started to resolve.He reports 90% improvement currently. He denies any other unilateral weakness, numbness, or tingling. No headache or blurred vision. denies any facial droop or slurred speech. He denies chest pain and shortness of breath. No lightheadedness , dizziness, diaphoresis, or syncopal events. He denies abdominal pain, nausea, vomiting, and diarrhea. No fever or chills. He denies urinary symptoms. In the ER, head CT is negative for acute findings. Labs are unremarkable. BP was initially elevated however is improving on its own. Physical Exam (per Admitting): General Appearance: no apparent distress Head: normocephalic Eyes: normal inspection, PERRL ENT: hearing grossly normal Neck: supple, no JVD Respiratory/Chest: lungs clear, normal breath sounds, no respiratory distress Cardiovascular: regular rate, rhythm, no edema, normal peripheral pulses Abdomen/GI: normal bowel sounds, non tender, soft Extremities/Musculoskelatal: normal inspection, no calf tenderness Neurologic/Psych: no motor/sensory deficits, alert, normal mood/affect, oriented x 3 Skin: normal color, warm/dry Hospital Course ACUTE CVA /POSSIBLE EMBOLIC STROKE presented with symptom of numbness /weakness lasted for approx 4 hrs resolved now no arrhythmia noted in EKG CT head -no acute finding MRI OF BRAIN : 1. Multiple small foci of acute infarction within the left frontal and parietal lobes. No mass effect or evidence of hemorrhagic conversion. 2. No intracranial masses or pathologic enhancement. -concern for Embolic phenomenon -Carotid Doppler . MRA of neck no stenosis noted _ECHO -no cardiac thrombus noted -no arrhythmia noted in Tele -Finding of MRI of brain D/w Pt , in detail -pt will be started on Aspirin 81 mg, addition of Plavix 75 mg daily ( asked to take with full stomach ) will need Dual antiplatelet therapy for at least 3 months then possible reduce to Aspirin daily if no further episode of TIA /CVA will be seen by Neurology in 4-6 weeks while on dual antiplatelet therapy -Fasting lipid profile shows LDL 120 given Acute CVA goal LDL < 70 to prevent future CVA /[place] pt started on Statin -repeat Fasting lipid panel in 3-4 months pt is asked to continue with healthy life style with activity /exercise /and low fat /low cholesterol diet _Will need CardioNet /Zio patch monitoring to assess for arrhythmia/paroxysmal Afib - family physician will be updated DVT PROPHYLAXIS low risk scd and teds ambulate DISPOSITION stable to be discharged home today Medicine follow up with Dr Valerio Marrero Neurology follow up with Dr Navarro Total time spent on discharge = 40 mins This includes examination of the patient, discharge planning, medication reconciliation, and communication with other providers. Discharge Instructions Discharge Instructions Date of Service January 10, 2017. Admission Reason for Admission: Right Arm Weakness Discharge Discharge Diagnosis / Problem: ACUTE STROKE Discharge Goals Goal(s): Improve function, Learn about illness, Diagnostic testing, Prevent Disease Progression Activity Recommendations Activity Limitations: resume your previous activity . Instructions / Follow-Up Instructions / Follow-Up HOSPITAL FOLLOW UP ON 01/19/2017 @ 1:[address] Valerio Marrero, DO Family Practice [facility] NEED TO FOLLOW UP WITH NEUROLOGY DR NAVARRO AT [facility] IN 2-3 WEEKS , PLEASE CALL OFFICE TO SCHEDULE AN APPOINTMENT ASPIRIN AND PLAVIX NEEDS TO BE CONTINUED FOR 3 MONTHS AT LEAST , THEN CAN BE REDUCED TO ASPIRIN ONLY NEED TO HAVE NEUROLOGY EVALUATION PRIOR TO DISCONTINUING PLAVIX TAKE BOTH ASPIRIN AND PLAVIX WITH FOOD -INCREASED RISK OF STOMACH ULCER / BLEEDING IF TAKEN IN EMPTY STOMACH PLEASE NOTIFY YOUR PHYSICIAN IF YOU NOTICE DARK STOOL -SIGN OF BLEEDING IN STOMACH YOU ARE STARTED ON A NEW MEDICATION TO LOWER YOUR CHOLESTEROL LIPITOR 20 MG DAILY NEED TO REPEAT FASTING LIPID PANEL IN 3 MONTHS TO ASSES ADEQUATE GOAL OF LDL IS OBTAINED ( GOAL < 70 ) YOU WILL NEED DIALYSIS PATIENT CARE TECHNICIAN -CARDIONET /ZIO PATCH TO ASSESS FOR ANY CARDIAC ARRHYTHMIA CAUSING YOUR HAVE THE STROKE Risk Factors for Stroke: You can reduce your chances of stroke by working with your medical provider to adopt a healthy lifestyle. Some specific ways to lower your chance of stroke are: * If you are a smoker, now is the time to stop smoking cigarettes * If you are diabetic, improve the control of your blood sugars * Avoid excessive amounts of alcohol * Control high blood pressure * Lose weight if you are overweight * Be sure to lead an active lifestyle * Eat a healthy diet low in salt, cholesterol and fat You should know about other risk factors for stroke that you are unable to control. These include: * Age 55 years or older * Male gender * Certain racial groups: , or / * Family History of Stroke, Mini stroke or Heart Attack * Sickle Cell Disease Follow Up: It is important for you to keep your follow up appointments with your medical provider. Current Hospital Diet Patient's current hospital diet: AHA Diet (Heart Healthy) Discharge Diet Recommended Diet: AHA Diet (Heart Healthy) Pending Studies Studies pending at discharge: no Laboratory Results Hemoglobin A1c Test 01/10/17 07:40 Range/Units Lipid Panel Test 01/10/17 11:25 Range/Units Medical Emergencies . Who to Call and When: Medical Emergencies: Call 911 immediately if you experience any of the following warning signs and symptoms of Stroke: * Sudden numbness or weakness of the face, arm or leg, especially on one side of the body * Sudden confusion, trouble speaking or understanding * Sudden trouble seeing in one or both eyes * Sudden trouble walking, dizziness, loss of balance or coordination * Sudden severe headache with no cause Do not delay calling 911 if you experience any warning signs or symptoms of a stroke. Delay in seeking medical attention may affect what treatments can be given to you. . Non-Emergent Contact Non-Emergency issues call your: Primary Care Provider . . "Provider Documentation" section prepared by Carole Flores. . Stroke Core Measures Reason no t-PA for Stroke: Treatment not indicated Reason no antithrom by day 2: Treatment provided - N/A Reason no antithrom at D/C: Treatment provided - N/A Reason no statin at D/C: Treatment not indicated Reason no anticoag w/a fib: Treatment not indicated VTE Core Measure Inpt VTE Proph given/why not?: [facility] [employer] [place] Drug Monitoring Program Search Results: no issues identified Additional Copies To Valerio Marrero D.O. Mateer, John, M.D. (MEDICINE)
[2017-01-12] MEDS ORDERED: CLOPIDOGREL BISULFATE 75 MG TAB PO SCH (09:00)
--- NOTE | 2017-01-17 15:40 | Pharmacy Progress Note ---
Pharmacist Post D/C Phone Note Date of phone call: Jan 17, 2017. Individual with whom pharmacist spoke to: Vivek Morrison [Patient] The following questions were reviewed during the phone call with responses listed below each: Can you tell me the medications that you are currently taking as well as when and how you take each medication? - Nifedipine ER, ASA, Plavix, Lipitor When have you missed any doses of your medications? - none What side effects are you having from your medications? - none What questions do you have about your medications? - none What problems are you having obtaining your medications? - none When is your next appointment with your primary care doctor? - Friday January 20, 2017 Additional comments: - He seems knowledgeable and active. He read the handouts with his new prescriptions. As per the Pharmacist Discharge Counseling for Stroke Patients Protocol, this phone call has been completed within 72 hours of discharge. Thank you for allowing us to be involved in the care of this patient.
[2017-05-24] MEDS ORDERED: ATOR-24 PO (07:30)
== END 2017-01-11 13:50 | disposition home or self-care (01) | DRG 65 ==
LOC: ENRESERVDT → ENRESERVTM → C.EDB 07:27 → C.MED 10:24
PROVIDERS: ADMIT Hospitalist; ATTEND Hospitalist
DX: I63.9 Cerebral infarction, unspecified (principal); G81.91 Hemiplegia, unspecified affecting right dominant side; R29.700 NIHSS score 0; K22.0 Achalasia of cardia; Z79.899 Other long term (current) drug therapy; Z79.82 Long term (current) use of aspirin; Z86.73 Personal history of transient ischemic attack (TIA), and cerebral infarction without residual deficits; Z85.828 Personal history of other malignant neoplasm of skin; Z82.49 Family history of ischemic heart disease and other diseases of the circulatory system; Z80.7 Family history of other malignant neoplasms of lymphoid, hematopoietic and related tissues

== ENCOUNTER → 2017-05-24 | Day surgery (SDC) | payer OTHER, BC ==
[~2017-05-24] VITALS: Ht 175.3 cm; Wt 76.5 kg
[~2017-05-24] MED LIST changes: +ACETAMINOPHEN 325 MG TAB PO PRN; +ASPEC81 PO; +ATOR-24 PO; +ATROPINE SULFATE 0.1 MG/ML 5ML SYR IV PRN; +DC ALL ANTICOAGULANTS ONE; +FENTANYL CITRATE INJ 50 MCG/1 ML 2 ML VIAL ONE; +HEPARIN SOD (PORCINE) 1000 UNIT/ML 10 ML VIAL ONE; +LPT20 PO; +MIDAZOLAM HCL 1 MG/ML 2ML VIAL ONE; +NITROGLYCERIN/D5W 100MCG/ML 20ML SYR ONE; +NiCARDipine HCL INJ 2.5 MG/ML 10 ML AMP ONE; +ONDANSETRON INJ 2 MG/ML 2 ML VIAL IV PRN; +PLV75 PO; +SODIUM CHLORIDE 0.9% 1000ML 1,000 ML IV SCH; +SODIUM CHLORIDE 0.9% 1000ML 250 ML IV PRN
[2017-05-24 07:05] VITALS: BP 152/73; PULSE 96; TEMP 36.8; O2SAT 97; Ht 175.3 cm; Wt 76.5 kg
--- NOTE | 2017-05-24 08:57 | History & Physical Bridge Note ---
H&P Re-Evaluation Bridge Note: I have examined the patient, reviewed the History & Physical and in the interval since the performance of the History & Physical I have noted the following changes of clinical significance: No changes noted
--- NOTE | 2017-05-24 09:01 | Discharge Instructions ---
Discharge Instructions Procedure Procedure Date: May 24, 2017. Reason for Visit: Abnormal Stress Test , Left Heart Cath Samra. Discharge Discharge Date: May 24, 2017. Discharge Diagnosis: Severe CAD Last Recorded Wt (Kilograms): 76.5 Anesthesia Post Anesthesia Instructions: If you have had General Anesthesia or IV Sedation: * Do not drive today. * Resume driving when surgeon permits. * Do not make important decisions or sign legal documents today. * Call surgeon for: 1. Temperature elevations greater than 101 degrees F. 2. Uncontrollable pain. 3. Excessive bleeding. 4. Persistent nausea and vomiting. 5. Medication intolerance (nausea, vomiting or rash). * For nausea and vomiting use only clear liquids such as: tea, soda, bouillon until nausea subsides, then gradually increase diet as tolerated. * If you have any concerns or questions, call your surgeon's office. If physician is unavailable and it is an emergency, call 911 or go to the nearest emergency room. Instructions Activity Recommendations: limitations Recommended Home Diet: resume previous diet Allergies: Coded Allergies: No Known Allergies (Unverified , 01/10/17) Provider Instructions ACTIVITY RECOMMENDATIONS: Excess manipulation of the wrist should be avoided for the next 24-48 hours. * No lifting over 2 pounds (approximately a 1/2 gallon of milk) with the utilized arm for 24 hours. * No strenuous activity such as bowling or tennis for 3 days. * Keep the site of the procedure covered with a bandage for 24 hours. *You may shower the day after the procedure. Do not take a tub bath or submerge the puncture site in water for the next 3 days. *Do not operate any motorized equipment for 3 days. SPECIAL CARE INSTRUCTIONS: The site may be slightly bruised and sore following your procedure. Should any of the following occur, contact the Dr. who performed your procedure. 1. Redness/inflammation, swelling, chills, or fever, or colored drainage at procedure site within 3-7 days after your procedure. 2. Coldness, discoloration, ongoing numbness, severe pain, or swelling. Expect mild tingling of hand and tenderness at the puncture site for up to three days. If this persists beyond three days, or other symptoms develop, notify the Dr. who performed your procedure. BLEEDING: If the procedure site on your wrist begins to bleed, do not panic 1. Place 1 or 2 fingers firmly just slightly above the insertion site to stop the bleeding. You may be able to feel your pulse as you hold pressure. 2. Lift your finger after 5 minutes to see if the bleeding has stopped. 3. Once the bleeding has stopped, gently wipe the wrist area clean with a bandage. * If the bleeding from your wrist does not stop after 10 minutes, or if there is a large amount of bleeding or spurting, call 911 (do not drive yourself to the hospital). SKIN IRRITATION: * You may experience some redness and/or swelling in the area where radiation was administered. If any skin irritation occurs, please contact your family physician. FOLLOW UP VISIT: Keep any scheduled doctor appointments. Follow Up Thony Coleman Recommendations: Call your doctor if: * Temperature above 101 degrees * Pain not relieved by pain medicine ordered * There is increased drainage or redness from any incision * You have any unanswered questions or concerns. Your Doctors Instructions noted above were prepared by provider Liam Cabrales. Patient Signature Section: Patient Instructions Signature Page Vivek Morrison Patient (or Guardian) Signature/Date: I have read and understand the instructions given to me by my caregivers. Caregiver/RN/Doctor Signature/Date: The above-named patient and/or guardian has received patient instructions on this date. + Original Patient Signature Page (only) stays with chart. Please make copy for patient.
--- NOTE | 2017-05-24 09:14 | Cardiac Catheterization ---
Procedure Note Procedure Date May 24, 2017. Pre-Procedure Diagnosis Positive Stress Test AUC Score 7 Post-Procedure Diagnosis Severe CAD Procedure(s) Performed Coronary Angiography, Left Heart Cath, LV Angiography [place] Dr. Cabrales Onshore Diver(s) None Estimated Blood Loss None Medication(s) Heparin, Versed, Lidocaine 1% Summary of Findings Occluded mid LAD with right to left collaterals filling distally. 95% proximal Ramus 70% Ostial LMT Left dominant system Hemodynamics Rest Ao: 90/54 Final Ao: 110/57 LV: 107/6 Recommendations management recommendations (To review findings) Specimens None Radiation Exposure (mGy) 1592 Contrast (mls) 110 Procedural Complication(s) None Disposition Special Service Representative Holding/Recovery ACC Data Cardiac Status Clinical evaluation leading to the procedure CAD Presntation: Positive Stress Test Anginal Classification: CCS I Heart Failure: No Cardiogenic Shock w/in 24Hrs: No Cardiac Arrest w/in 24Hrs: No Imaging studies past 6 months: Yes Stress studies past 6 months: Yes Stress Echocardiogram: Yes - Positive Coronary Anatomy Dominant: Left Left Main (% Stenosis): Ostial (70) LAD (% Stenosis): Mid (occluded) Ramus (% Stenosis): Proximal (95) Left Ventricular Angiography EF (%): 60 Diagnostic Status: Elective Closure Device Percutaneous Entry Location: Radial Closure Device: Radial Band Recommendations: management recommendations (Review findings)
[2017-05-24 10:30] VITALS: O2SAT 96
[2017-05-24 10:45] VITALS: BP 120/80; PULSE 97
== END | disposition home or self-care (01) ==
LOC: C.CATH 06:39
PROVIDERS: ATTEND Internal Medicine Interventional Cardiology
DX: I25.10 Atherosclerotic heart disease of native coronary artery without angina pectoris (principal); R94.39 Abnormal result of other cardiovascular function study; M15.9 Polyosteoarthritis, unspecified; E78.5 Hyperlipidemia, unspecified; N40.0 Benign prostatic hyperplasia without lower urinary tract symptoms; Z86.73 Personal history of transient ischemic attack (TIA), and cerebral infarction without residual deficits; Z79.82 Long term (current) use of aspirin; Z79.899 Other long term (current) drug therapy